=== PATIENT | female | born 1985 | race Caucasian/White ===

== ENCOUNTER 2022-03-05 12:53 | Emergency (ER) | payer BC ==
[~2022-03-05] VITALS: Ht 170.2 cm; Wt 108.0 kg
--- NOTE | 2022-03-05 13:49 | NUR ---
SPECIMEN CUP PROVIDED TO PT FOR URINE; UNABLE TO PROVIDE AT THIS TIME.
--- NOTE | 2022-03-05 13:49 | NUR ---
RAPID FLU AND RAPID COVID SWABS COLLECTED AND SENT TO LAB
[2022-03-05] MEDS ORDERED: BENZONATATE 100 MG CAPSULE PO PRN (14:00)
--- NOTE | 2022-03-05 15:29 | NUR ---
PT STATED THAT SHE DOES NOT NEED TO GIVE URINE TOLD HER IT'S OKAY.
[2022-03-05] MEDS ORDERED: BENZ-13 PO (16:08)
[2022-03-05] MEDS ORDERED: POLY10DR3 EACHEYE (16:09)
[2022-03-05 16:32] VITALS: BP 136/79
--- NOTE | 2022-03-05 16:32 | NUR ---
Patient discharged to home in stable condition. Written and verbal after care instructions given. Patient verbalizes understanding of instruction.
== END 2022-03-05 16:33 | disposition home or self-care (01) ==
LOC: ER 12:53
DX: J20.8 Acute bronchitis due to other specified organisms (principal); Z20.822 Contact with and (suspected) exposure to COVID-19; E06.3 Autoimmune thyroiditis
CPT/HCPCS: 99285; 71045; 87426; 87804; C9803